=== PATIENT | male | born 1980 | race Caucasian/White ===

== ENCOUNTER → 2021-01-28 14:56 | Outpatient (BNVA) | payer OTHER, SELFPAY | PROVIDERS: PCP Internal Medicine; Visit Provider Physician Assistant | DX: M77.11 Lateral epicondylitis, right elbow (principal) | CPT/HCPCS: 20551; J1020 ==

== ENCOUNTER → 2021-06-18 09:30 | Outpatient (BNVA) | payer OTHER, SELFPAY | PROVIDERS: PCP Internal Medicine; Visit Provider Physician Assistant | DX: Z13.89 Encounter for screening for other disorder (principal) ==

== ENCOUNTER 2021-06-25 07:15 | Outpatient (REF) | payer OTHER, SELFPAY | END 2021-06-25 07:16 | disposition home or self-care (01) | LOC: HO.HOSX 07:15 | PROVIDERS: Visit Provider Physician Assistant | DX: Z13.89 Encounter for screening for other disorder (principal) ==

== ENCOUNTER 2021-07-23 07:43 | Outpatient (REF) | payer OTHER, SELFPAY ==
--- NOTE | ~2021-07-23 | XR_ITS ---
EXAMINATION: XR KNEE, LEFT CLINICAL INFORMATION: Pain. COMPARISON: None TECHNIQUE: Two views of the left knee. FINDINGS: Limited evaluation of the left knee with only lateral and sunrise views obtained. Accounting for these limitations, no discrete fractures are identified. There is an indeterminate 1.4 cm radiopaque metallic body overlying the distal shaft of the femur. Small joint effusion. XR/XR knee LT 2V IMPRESSION: Suboptimal evaluation in the absence of AP/PA views. If these were obtained, an addendum can be created once these become available. No discrete fractures on these lateral and sunrise views. Small joint effusion. Indeterminate metallic foreign body projecting over the distal femur on the lateral view.
--- NOTE | ~2021-07-23 | XR_ITS ---
EXAMINATION: XR KNEE AP STANDING CLINICAL INFORMATION: Pain. COMPARISON: Lateral and sunrise views of the left knee obtained same day. TECHNIQUE: AP bilateral standing view of the knees was obtained. FINDINGS: No acute fracture or malalignment. Very minimal joint space narrowing in the medial compartment of both knees. No chondrocalcinosis. Normal appearance of the soft tissues. XR/XR knee standing BI IMPRESSION: No acute fractures or malalignment. 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
== END 2021-07-23 07:44 | disposition home or self-care (01) ==
LOC: HO.HOSX 07:43
PROVIDERS: Visit Provider Physician Assistant
DX: M23.91 Unspecified internal derangement of right knee (principal)
CPT/HCPCS: 73560; 73565

== ENCOUNTER 2021-08-06 07:18 | Outpatient (REF) | payer OTHER, SELFPAY ==
--- NOTE | ~2021-08-06 | MR_ITS ---
EXAMINATION: MR KNEE WITHOUT CONTRAST, LEFT CLINICAL INFORMATION: Knee pain. Patient reports pain below patella. COMPARISON: X-rays of the left knee June 2021. TECHNIQUE: MRI of the knee without contrast was performed using routine sequences on a high-field scanner. FINDINGS: MENISCI: Medial Meniscus: Intact Lateral Meniscus: Intact LIGAMENTS: Cruciate: ACL: There is increased signal throughout most of the anterior cruciate ligament except for the distal portion ligament. This has the appearance of an intraligamentous cruciate cyst versus prominent mucoid degeneration. PCL normal. Collateral: Intact EXTENSOR MECHANISM: Intact ARTICULAR CARTILAGE/BONE: Patellofemoral Compartment: Normal Medial Compartment: Normal Lateral Compartment: Normal JOINT FLUID AND BURSAE: Normal MR/MR knee LT wo con IMPRESSION: 1. ACL: Cruciate cyst versus mucoid degeneration. 2. Patellofemoral joint normal. 3. Trace Prajapati's cyst.
== END 2021-08-06 07:19 | disposition home or self-care (01) ==
LOC: HO.MRI 07:18
PROVIDERS: Visit Provider Physician Assistant
DX: M23.91 Unspecified internal derangement of right knee (principal)
CPT/HCPCS: 73721